=== PATIENT | male | born 1980 | race Caucasian/White ===

== ENCOUNTER → 2025-10-18 | Outpatient (CLI) | payer BC, SELFPAY ==
[2025-10-18 16:19] LABS: HIV (1&2) Antibody Rapid Non-Reactive
[2025-10-18 16:24] LABS: Syphilis Nonreactive (Nonreactive)
[2025-10-19 12:22] LABS: Chlamydia trachomatis PCR Negative (Not Detect); Neisseria Gonorrhoeae DNA PCR Negative (Not Detect); Trichomonas Negative (Negative)
== END | disposition home or self-care (01) ==
LOC: COPL 14:16
PROVIDERS: PCP Family Medicine; Referring Provider Physician Assistant Medical; Visit Provider Physician Assistant Medical
DX: L02.215 Cutaneous abscess of perineum (principal)
CPT/HCPCS: 36415; 86703; 86780; 87491; 87591; 87661